=== PATIENT | female | born 1975 | race Caucasian/White ===

== ENCOUNTER 2024-12-11 10:30 | Inpatient (IN) | payer OTHER, SELFPAY ==
[2024-12-11] VITALS (13 sets, daily range): BP systolic 98–136; BP diastolic 59–111; BMI 29.1
[2024-12-11 05:21] LABS: % Eosinophils 1.3 % (0-6); % Immature Granulocytes 0.4 % (0-0.5); % Lymphocytes 17.5 % (20.5-51.1); % Neutrophils 70.8 % (42.2-75.2); Absolute Basophils 0.1 10^3/uL (0-0.2); Absolute Eosinophils 0.1 10^3/uL (0-0.7); Absolute Lymphocytes 1.6 10^3/uL (1.2-3.4); Absolute Monocytes 0.8 10^3/uL (0.1-0.6); Absolute Neutrophils 6.6 10^3/uL (1.4-6.5); Hematocrit 39.9 % (37.0-47.0); Hemoglobin 13.1 g/dL (12.0-16.0); Mean Corp Hgb Conc. 32.8 g/dL (33.0-37.0); Mean Corpuscular Hgb 31.9 pg (27.0-31.0); Mean Corpuscular Volume 97.1 fL (81.0-99.0); Mean Platelet Volume 10.6 fL (7.4-10.4); Nucleated Red Blood Cells % 0 %; Platelet Count 226 10^3/uL (130-400); Red Blood Cell Count 4.11 10^6/uL (4.20-5.40); Red Cell Dist. Width 13.1 % (11.5-14.5); White Blood Cell Count 9.3 10^3/uL (4.8-10.8)
[2024-12-11 05:30] LABS: COVID-19 Antigen Negative (Negative)
[2024-12-11 05:41] LABS: ALT (SGPT) 24 U/L (0-35); AST (SGOT) 35 U/L (14-36); Albumin 4.5 g/dl (3.5-5.0); Alkaline Phosphatase 66 U/L (38-126); Blood Urea Nitrogen 17 mg/dl (7-17); Calcium 9.8 mg/dl (8.4-10.2); Carbon Dioxide 18 mmol/L (22-30); Chloride 105 mmol/L (98-107); Estimated Creatinine Clearance 84 ml/min; Glucose 131 mg/dl (70-99); Sodium 138 mmol/L (135-145); Total Bilirubin 0.4 mg/dl (0.2-1.3); Total Protein 7.1 g/dl (6.3-8.2); eGFR > 60.00
[2024-12-11] MEDS: OFIRMEV 100 IV (05:47)
[2024-12-11] MEDS: NSS 2800 ML IV (05:47)
[2024-12-11 05:52] LABS: Lactic Acid 2.2 mmol/L (0.7-2.0)
--- NOTE | 2024-12-11 05:55 | ED.GENMED ---
History of Present Illness
<Luigi Puga MD, Resident - Last Filed: 12/11/24 09:39>
General
Chief Complaint: Change in Mental Status
Source: patient, family and physician
Time Seen by Provider: 12/11/24 05:53
Nursing documentation reviewed up to this point in time: agreed with
Travel History
Have you traveled to any high risk areas for coronavirus over the past 14 days?: No
Have you had any contact with someone who has COVID-19?: No
Do you have any symptoms of coronavirus? Fever > 100 degrees, chills, cough, shortness of breath, sore throat, loss of taste or smell, muscle aches, or headache?: Yes
History of Present Illness
History of Present Illness:
49-year-old female with PMH of psychosis, hypertension, bipolar disorder, periodic vomiting syndrome, narcotic abuse, marijuana use disorder, tobacco use disorder who presented to the ED by ambulance after family saw her hunching over her bed.
Family reports that they have been sick with flu and thinks that patient got the flu from them. They also reports that patient has been drinking heavily over the past 6 months but stopped drinking heavily recently after getting sick. Patient
denies chest pain, headaches, and dizziness.
Past History
<Luigi Puga MD, Resident - Last Filed: 12/11/24 09:39>
Past History
ED Past Medical History: HTN, Psychiatric (Overdose, bipolar disorder), Other (Chronic headaches, Palpitations) and Other (The patient has a history of periodic vomiting syndrome)
ED Past Surgical History: Other (Patient is given an endoscopy November 17 which was normal)
Social History
Tobacco: Smoker
Alcohol: None
Drug: Marijuana and Narcotics
Personal:
Living: with family
Employment: Employed
Family History
Family History: Other (Father with lung cancer)
Review of Systems
<Luigi Puga MD, Resident - Last Filed: 12/11/24 09:39>
Review of Systems
Other source history: family
Constitutional: Reports fever
Respiratory: Reports other (End expiratory wheeze)
Cardiac: Reports no symptoms
ABD/GI: Reports no symptoms
Skin: Reports other (Ecchymosis with second-degree burn on abdomen)
Neurological: Reports no symptoms
Phy Exam
<Luigi Puga MD, Resident - Last Filed: 12/11/24 09:39>
General Physical Exam
General Presentation: no apparent distress
General age: appears stated age
General Skin: warm, dry and feels hot
General Habitus: obese
General Mental: other (Somnolent but arousable)
General Hydration: dry mucous membranes and poor skin turgor
ENT Exam
ENT Exam: EOMI and neck supple
Cardiovascular Exam
Cardiovascular Exam: regular rate/rhythm, no edema, no gallop, no murmur and normal peripheral pulses
Pulmonary Exam
Pulmonary Exam: lungs clear, no respiratory distress, no crackles, no cough and generalized wheezing (B/l end-expiratory wheezing)
Breath Sounds: Wheeze: generalized
Gastrointestinal Exam
Gastrointestinal Exam: normal bowel sounds, non tender, soft, no organomegaly, no masses and other (Obese)
Palpation: generalized: No tenderness
Auscultation of Abdomen: normal
Mental
Mental Status: oriented to person and oriented to place
Musculoskeletal Exam
Musculoskeletal Exam: full ROM
Skin Exam
Skin Exam: warm/dry, redness (Mid abdominal), warmth and other (Second-degree burn mid abdomen)
Psychiatric Exam
Psychiatric Exam: normal mood/affect and other (Drowsy but arousable)
Course
<Luigi Puga MD, Resident - Last Filed: 12/11/24 09:39>
Orders/Labs/Results
Orders:
Orders
12/11/24 05:01
CT Head W/o Iv Contrast Urgent
Comment:
Reason For Exam: change in mentation
Cardiac Monitoring- Treatment ONCE
12/11/24 05:05
Alcohol Urgent
CMP [Comprehensive Metabolic Panel] Urgent
COVID-19 Antigen Urgent
Source: Nasal Swab
Complete Blood Count/With Diff Urgent
Lactic Acid Urgent
Influenza A+B Rapid Molecular Urgent
[place] Source: Nasal Swab
Specimen Description:
12/11/24 05:20
0.9% Sodium Chloride 1000 ml [Nss] 2,800 ml IV NOW STA
Acetaminophen 1000MG/100Ml [Ofirmev] 1,000 mg in 100 ml IV ONCE
Acetaminophen IV Indication:: ED Narcotic Naive Pt-ONCE
12/11/24 05:53
Add On- LAB Urgent
Tests Added?: alcohol
12/11/24 07:29
Lorazepam [Ativan] 1 mg IV NOW STA
12/11/24 08:00
Oseltamivir Phosphate [Tamiflu] 75 mg PO BID
Abnormal Lab Results
12/11/24
05:05
RBC 4.11 L 10^6/uL
(4.20-5.40)
MCH 31.9 H pg
(27.0-31.0)
MCHC 32.8 L g/dL
(33.0-37.0)
MPV 10.6 H fL
(7.4-10.4)
Absolute Neuts (auto) 6.6 H 10^3/uL
(1.4-6.5)
Absolute Monos (auto) 0.8 H 10^3/uL
(0.1-0.6)
Lymphocytes % 17.5 L %
(20.5-51.1)
Carbon Dioxide 18 L mmol/L
(22-30)
Glucose 131 H mg/dl
(70-99)
Lactic Acid 2.2 H mmol/L
(0.7-2.0)
12/11/24 05:05
12/11/24 05:05
Vital Signs
Initial and Last Documented VS:
Initial Vital Signs
BP
120/73
12/11/24 05:00
Last Documented Vital Signs
Temp Pulse Resp BP Pulse Ox
99.1 F 73 23 98/65 90
12/11/24 07:43 12/11/24 08:39 12/11/24 08:39 12/11/24 08:00 12/11/24 08:39
<Cleveland Gomes, DO - Last Filed: 12/11/24 09:25>
Orders/Labs/Results
Orders:
Orders
12/11/24 05:01
CT Head W/o Iv Contrast Urgent
Comment:
Reason For Exam: change in mentation
Cardiac Monitoring- Treatment ONCE
12/11/24 05:05
Alcohol Urgent
CMP [Comprehensive Metabolic Panel] Urgent
COVID-19 Antigen Urgent
Source: Nasal Swab
Complete Blood Count/With Diff Urgent
Lactic Acid Urgent
Influenza A+B Rapid Molecular Urgent
[place] Source: Nasal Swab
Specimen Description:
12/11/24 05:20
0.9% Sodium Chloride 1000 ml [Nss] 2,800 ml IV NOW STA
Acetaminophen 1000MG/100Ml [Ofirmev] 1,000 mg in 100 ml IV ONCE
Acetaminophen IV Indication:: ED Narcotic Naive Pt-ONCE
12/11/24 05:53
Add On- LAB Urgent
Tests Added?: alcohol
12/11/24 07:29
Lorazepam [Ativan] 1 mg IV NOW STA
12/11/24 08:00
Oseltamivir Phosphate [Tamiflu] 75 mg PO BID
Abnormal Lab Results
12/11/24
05:05
RBC 4.11 L 10^6/uL
(4.20-5.40)
MCH 31.9 H pg
(27.0-31.0)
MCHC 32.8 L g/dL
(33.0-37.0)
MPV 10.6 H fL
(7.4-10.4)
Absolute Neuts (auto) 6.6 H 10^3/uL
(1.4-6.5)
Absolute Monos (auto) 0.8 H 10^3/uL
(0.1-0.6)
Lymphocytes % 17.5 L %
(20.5-51.1)
Carbon Dioxide 18 L mmol/L
(22-30)
Glucose 131 H mg/dl
(70-99)
Lactic Acid 2.2 H mmol/L
(0.7-2.0)
12/11/24 05:05
12/11/24 05:05
Vital Signs
Initial and Last Documented VS:
Initial Vital Signs
BP
120/73
12/11/24 05:00
Last Documented Vital Signs
Temp Pulse Resp BP Pulse Ox
99.1 F 73 23 98/65 90
12/11/24 07:43 12/11/24 08:39 12/11/24 08:39 12/11/24 08:00 12/11/24 08:39
<Luigi Donato Puga MD, Resident - Last Filed: 12/11/24 09:39>
MDM/Problems Addressed
Differential Diagnosis Includes:
Alcohol withdrawal syndrome, influenza infection, anion gap metabolic acidosis (lactic acidosis)
MDM/Problems Addressed:
49-year-old female with PMH of hypertension, alcohol use disorder, bipolar disorder, periodic vomiting syndrome who presented to the emergency department with change in mental status. She has been drinking heavily for the past 6 months and stopped
drinking as much of that she got sick. She is influenza positive, COVID-negative. Labs significant for anion gap metabolic acidosis with lactic acidosis.
Admit to IMU.
Head CT unremarkable.
Influenza positive-Tamiflu 75 mg
Will start alcohol withdrawal protocol with Ativan 1 Mg.
IV fluids.
Discussed with hospitalist team.
Chronic conditions affecting care:
Alcohol use disorder, tobacco use disorder, marijuana use disorder, periodic vomiting syndrome
<Cleveland Gomes, DO - Last Filed: 12/11/24 09:25>
MDM/Problems Addressed
Chronic conditions affecting care: Psychiatric illness
Acute Exacerbation and/or Progression of Chronic Illness: Psychiatric illness
<Luigi Puga MD, Resident - Last Filed: 12/11/24 09:39>
*Radiology
Radiology exam reviewed: radiology read reviewed and all reviewed NAD by ED Provider
*Pulse Oximetry
Patient hypoxic: no
<Cleveland Gomes, DO - Last Filed: 12/11/24 09:25>
*Radiology
Radiology exam reviewed: radiology read reviewed (ct head nad)
*Critical Care Note
Total Time (30-74mins, 75-104mins- exclusive of procedures): Not Applicable
Data Reviewed
Review of Other/Old Records Reveals: Labs
Source: records (prior cr 0.8, 12/06/18)
<Luigi Puga MD, Resident - Last Filed: 12/11/24 09:39>
Patient Management
Social determinants of health affecting care: Substance abuse
Discussion with other providers: Hospitalist
<Cleveland Gomes, DO - Last Filed: 12/11/24 09:25>
Patient Management
Escalation/DeEscalation of care consider admission/obs:
admit indicated
ED Attending Note
<Luigi Puga MD, Resident - Last Filed: 12/11/24 09:39>
-
Portions of this chart may have been created with voice recognition software.� Occasional wrong word or��sound alike� substitutions may have occurred due to the inherent limitations of voice recognition software.
<Cleveland Gomes, DO - Last Filed: 12/11/24 09:25>
ED Attending Note
Patient seen and examined by attending physician: Yes
I performed a history and physical exam of patient and discussed management with resident, I reviewed resident's note and agree with documented findings and plan of care.: Yes
ED Attending Note:
I have reviewed and agree with history treatment plan by Luigi Puga MD. my exam revealed four 9-year-old female appears uncomfortable, sleepy but arousable. Temperature 102. She has a small area of blistering on her abdomen consistent with a
less than 1% second-degree burn, and an area of first-degree burn less than 1 %. Admit for alcohol withdrawal, influenza treatment, hypovolemia.
Discharge Plan
Departure
Patient Disposition: Admit
Date of Disposition: 12/11/24
Time of Disposition: 07:08
Admit to: IMU
Presentation/result/management discussed w/ accepting MD/DO: Hospitalist
Patient with high blood pressure during this ER visit?: No
Condition: Good
Discharge Problem:
Alcohol withdrawal, Flu, Alcohol use disorder, Cannabis use disorder, Acute dehydration, Bipolar disorder, Essential hypertension
Prescriptions:
No Action
lithium carbonate 450 mg Tablet Extended Release
900 mg PO DAILY
propranolol 10 mg Tablet
20 mg PO BIDPRN PRN (Reason: anxiety)
gabapentin 800 mg Tablet
800 mg PO QID
propranolol 80 mg Capsule,Extended Release 24 Hr
80 mg PO DAILY
prazosin 2 mg Capsule
2 mg PO HS
quetiapine [Seroquel] 50 mg Tablet
150 mg PO HS
quetiapine [Seroquel] 50 mg Tablet
50 mg PO HSPRN PRN (Reason: anxiety/sleep)
Referrals:
UNKNOWN - PT DOES,NOT KNOW [Family Provider] -
Interventions
Interventions:
*Risk Screen - Suicide Last Done: 12/11/24 05:03
*General Assessment Last Done: 12/11/24 05:03
*Neglect/Abuse Screening Last Done: 12/11/24 05:03
ED- Fall Risk Assessment Last Done: 12/11/24 06:00
ED- Pulmonary Assessment Last Done: 12/11/24 06:00
ED- Neurological Assessment Last Done: 12/11/24 06:00
ED- Cardiac Assessment Last Done: 12/11/24 06:00
Discharge Date and Time
Print Language: KOREAN
[2024-12-11 06:41] LABS: Alcohol None Detected
[2024-12-11] MEDS: ATIVAN 1 MG IV (07:38)
[2024-12-11] MEDS: TAMIFLU 75 MG PO ×2 (07:38→19:59)
--- NOTE | 2024-12-11 07:47 | PHANOTE ---
med rec note- patient verbal not communicating. daughter and family in room but unable to confirm medication. they did say patient has bunch of pill bottles at home. patient has no ecw records.
--- NOTE | 2024-12-11 09:19 | HPS.HSE ---
Family Physician
-
Family Physician: NOT KNOW UNKNOWN - PT DOES
Chief Complaint
-
Lethargy
History of Present Illness
49-year-old female with a past medical history of hypertension, bipolar disorder, and alcohol use disorder presented with lethargy, shaking, and possible vomiting. Patient lives with her daughter, who found her hunched over the side of the bed at 1
AM. Daughter reports patient being lethargic, slow to respond, and having tremors. Daughter is sick with the flu, patient was febrile in the ER and also tested positive for flu A. Associated symptoms include coughing, nausea, sneezing. No chest
pain, no shortness of breath. Patient drinks daily, her last drink was 2 days ago.
Medical History
Past Medical History
Past Medical History: Reports Other
Additional Past Medical History:
Hypertension
Bipolar disorder
Drug overdose
Chronic headaches
Palpitations
Alcohol use disorder
Periodic vomiting syndrome
Past Surgical History: Reports Other
Additional Past Surgical History:
Endoscopy
Social History
Tobacco: Smoker
Alcohol: Daily
Drug: Marijuana
Living: With Family
Family History
Family History: Not pertinent
Allergies / Home Medications
Allergies reflects when Allergies were last updated in [employer].
Home Medications with original date entered in [employer]
Allergy/Medication List:
Allergies
Allergy/AdvReac Type Severity Reaction Status Date / Time
NKA - No Known Allergies Allergy Unknown Uncoded 12/11/24 05:08
Home Medications Table - record
�Medication �Instructions �Recorded �Confirmed
gabapentin 800 mg tablet 800 mg PO QID 12/11/24
lithium carbonate 450 mg 900 mg PO DAILY 12/11/24
tablet,extended release
prazosin 2 mg capsule 2 mg PO HS 12/11/24
propranolol 10 mg tablet 20 mg PO BIDPRN PRN anxiety 12/11/24
propranolol 80 mg capsule,24 80 mg PO DAILY 12/11/24
hr,extended release
quetiapine 50 mg tablet (Seroquel) 50 mg PO HSPRN PRN anxiety/sleep 12/11/24
quetiapine 50 mg tablet (Seroquel) 150 mg PO HS 12/11/24
Review of Systems
-
A 12 point ROS was completed and negative except as noted: Yes
Physical Exam
Vital Signs
Vital Signs
Temp Pulse Resp BP Pulse Ox
99.1 F 73 23 98/65 90
12/11/24 07:43 12/11/24 08:39 12/11/24 08:39 12/11/24 08:00 12/11/24 08:39
Physical Exam
General: No Apparent Distress
HEENT: NormoCephalic, Anicteric and Moist mucous membranes
Respiratory: Clear
Cardiac: S1/S2
GI: Soft, Non Tender, Non Distended and Normal Bowel Sounds
Musculoskeletal: No Clubbing, No Cyanosis and No Edema
Skin: Warm and Dry
Neuro: Awake, Alert, Oriented and Tremors
Psych: Calm
Laboratory Results
-
12/11/24 05:05
12/11/24 05:05
Laboratory Results
Lactic Acid 2.2 mmol/L (0.7-2.0) H 12/11/24 05:05
Total Bilirubin 0.4 mg/dl (0.2-1.3) 12/11/24 05:05
AST 35 U/L (14-36) 12/11/24 05:05
ALT 24 U/L (0-35) 12/11/24 05:05
Alkaline Phosphatase 66 U/L (38-126) 12/11/24 05:05
Impression/Plan
-
HPI: 49-year-old female with a past medical history of hypertension, bipolar disorder, and alcohol use disorder presented with lethargy, shaking, and possible vomiting. Patient lives with her daughter, who found her hunched over the side of the bed
at 1 AM. Daughter reports patient being lethargic, slow to respond, and having tremors. Daughter is sick with the flu, patient was febrile in the ER and also tested positive for flu A. Associated symptoms include coughing, nausea, sneezing. No
chest pain, no shortness of breath. Patient drinks daily, her last drink was 2 days ago.
#Acute influenza A infection
Continue Tamiflu x 5 days, supportive care
#Acute alcohol withdrawal
Thiamine, folic acid
MSAS protocol
#Bipolar disorder
Continue lithium, Seroquel
#Chronic headaches
Continue propranolol
DVT prophylaxis�subcu Lovenox
Full code
Updated daughter on phone 12/11
Total time spent to see the patient on the floor, examine the patient, review data and lab results, discuss treatment plan with patient, nursing staff around 76 minutes.
[2024-12-11] MEDS: SODIUM BICARBONATE 1300 MG PO ×3 (15:29→23:11)
[2024-12-11] MEDS: VITAMIN B1 100 MG PO ×2 (15:29→19:59)
[2024-12-11] MEDS: MUCINEX 1200 MG PO ×2 (15:29→19:59)
[2024-12-11] MEDS: SODIUM BICARBONATE 1075 MEQ IV (16:15)
[2024-12-11 17:32] LABS: Magnesium 2.2 mg/dl (1.6-2.3); Phosphorus 5.4 mg/dl (2.5-4.5)
[2024-12-11] MEDS: LOVENOX 40 MG SC (18:13)
--- NOTE | 2024-12-11 19:15 | PTCARENOTE ---
Pt aaox3,cooperative. nsr on monitor. pox 95% on RA. Denies sob, c/o mild cough. medications given as ordered. Pt oob to br with steady gait. Urine sample sent. oriented to room.
[2024-12-11 20:11] LABS: Urine Albumin Trace (Neg - Trace); Urine Bilirubin Negative (Negative); Urine Character Clear (Clear); Urine Color Yellow; Urine Glucose Negative (Negative); Urine Ketone Negative (Negative); Urine Leukocyte Negative (Negative); Urine Nitrite Negative (Negative); Urine Occult Blood Negative (Negative); Urine Specific Gravity 1.025 (<1.030); Urine Urobilinogen Negative (Neg - 1+)
[2024-12-11 20:29] LABS: Amphetamines Negative (Negative); Barbiturates Negative (Negative); Benzodiazepines Positive (Negative); Buprenorphine Negative (Negative); Cocaine Negative (Negative); Marijuana Positive (Negative); Methadone Negative (Negative); Methamphetamines Negative (Negative); Opiates Negative (Negative); Phencyclidine Negative (Negative); Tricyclic Antidepressants Positive (Negative)
--- NOTE | 2024-12-11 21:30 | PTCARENOTE ---
Pt transferred from ED to 3W via stretcher. Pt independent from stretcher to bed, vitals obtained and stable. Pt flu+, ETOH w/d on MSAS protocol. AAOX3, TELE #25, oriented to room, call ellington within reach. Will continue to monitor.
[2024-12-11 21:42] LABS: Fentanyl, Urine Negative (Negative)
[2024-12-11] MEDS: SEROQUEL 200 MG PO (23:11)
[2024-12-11] MEDS: NEURONTIN 800 MG PO (23:12)
[2024-12-11] MEDS: MINIPRESS 2 MG PO (23:34)
[2024-12-12] VITALS: BP 142/93; BMI 32.3
[2024-12-12 03:16] VITALS: BP 110/67
[2024-12-12 07:05] VITALS: BP 102/68
[2024-12-12 08:05] LABS: Blood Urea Nitrogen 9 mg/dl (7-17); Calcium 8.7 mg/dl (8.4-10.2); Carbon Dioxide 27 mmol/L (22-30); Chloride 109 mmol/L (98-107); Estimated Creatinine Clearance > 125 ml/min; Glucose 88 mg/dl (70-99); Magnesium 2.4 mg/dl (1.6-2.3); Potassium 3.8 mmol/L (3.5-5.1); Sodium 142 mmol/L (135-145); eGFR > 60.00
[2024-12-12] MEDS: NEURONTIN 800 MG PO ×2 (08:18→13:36)
[2024-12-12] MEDS: ESKALITH ER (EXTENDED RELEASE) 900 MG PO (08:18)
[2024-12-12] MEDS: VITAMIN B1 100 MG PO (08:18)
[2024-12-12] MEDS: MUCINEX 1200 MG PO (08:18)
[2024-12-12] MEDS: FOLVITE 1 MG PO (08:18)
[2024-12-12] MEDS: TAMIFLU 75 MG PO (08:19)
[2024-12-12] MEDS: INDERAL LA 80 MG PO (08:19)
[2024-12-12] MEDS: SODIUM BICARBONATE 1300 MG PO (08:19)
--- NOTE | 2024-12-12 09:08 | W.PN.HOSP.TC ---
Today's Communication/Plan
-
Discharge today
Assessment / Plan
Assessment / Plan
HPI: 49-year-old female with a past medical history of hypertension, bipolar disorder, and alcohol use disorder presented with lethargy, shaking, and possible vomiting. Patient lives with her daughter, who found her hunched over the side of the bed
at 1 AM. Daughter reports patient being lethargic, slow to respond, and having tremors. Daughter is sick with the flu, patient was febrile in the ER and also tested positive for flu A. Associated symptoms include coughing, nausea, sneezing. No
chest pain, no shortness of breath. Patient drinks daily, her last drink was 2 days ago.
#Acute influenza A infection
Continue Tamiflu x 5 days, supportive care
She denies shortness of breath, she is not hypoxic
Medically stable for discharge
Follow-up with her PCP in 1 week
#Acute alcohol withdrawal
Thiamine, folic acid
MSAS protocol
Alcohol cessation counseling has been provided
Patient states she will try outpatient therapy
Discharge on thiamine
#Bipolar disorder
Continue lithium, Seroquel
#Chronic headaches
Continue propranolol
#Obesity due to excess calories
Affects all aspects of care
DVT prophylaxis�subcu Lovenox
Full code
Updated daughter on phone 12/12
Physical Exam
General: Obese, no acute distress
HEENT: Normocephalic, Atraumatic, EOMI, MMM
Respiratory: Clear to Auscultation bilaterally
Cardiac: Normal S1/S2, Regular Rate and Rhythm
GI: Soft, Nontender, Nondistended, Normal Bowel Sounds
Extremities: No Clubbing, Cyanosis, or Edema
Neuro: Nonfocal/Grossly Intact
Psych: Calm, Cooperative
Derm: No Visible lesions
Anticipated Discharge: Today
Subjective/Interval History
-
Date of Service: December 12, 2024
Patient continues to cough, but feels better overall. Denies shortness of breath. No chest pain, no nausea, no vomiting. Her shakes/tremors have resolved.
Objective Data
-
Labs:
Laboratory Results
12/12/24
06:38
Sodium 142
Potassium 3.8
Chloride 109 H
Carbon Dioxide 27
BUN 9
Creatinine 0.6
Glucose 88
Calcium 8.7
Vital Signs:
Vital Signs
Temp Pulse Resp BP Pulse Ox
98.4 F 79 18 102/68 99
12/12/24 07:05 12/12/24 07:05 12/12/24 07:05 12/12/24 07:05 12/12/24 07:05
[2024-12-12 11:05] VITALS: BP 107/77
[2024-12-12] MEDS: HYDROPHOR 1 APPLIC TOPICAL (13:42)
[2024-12-12 15:05] VITALS: BP 108/69
[2024-12-12] MEDS: AFLURIA (36 mos+) 2024-2025 FORMULA 0.5 ML IM (15:45)
== END 2024-12-12 16:25 | disposition home or self-care (01) | DRG 897 ==
LOC: 3 WEST ACU 10:30
PROVIDERS: Emergency Medicine; ADMITTING PHYSICIAN Family Medicine; EMERGENCY PHYSICIAN Emergency Medicine
PROC: 3E02340 Introduction of Influenza Vaccine into Muscle, Percutaneous Approach (ICD-10-PCS; 2024-12-12)
DX: F10.139 Alcohol abuse with withdrawal, unspecified (principal); J10.1 Influenza due to other identified influenza virus with other respiratory manifestations; I10 Essential (primary) hypertension; F31.9 Bipolar disorder, unspecified; E86.0 Dehydration; F17.200 Nicotine dependence, unspecified, uncomplicated; E66.09 Other obesity due to excess calories; Z68.32 Body mass index [BMI] 32.0-32.9, adult; Z23 Encounter for immunization; Z20.822 Contact with and (suspected) exposure to COVID-19
CPT/HCPCS: 70450; 80048; 80053; 80306; 80307; 81003; 82077; 83605; 83735; 84100; 85025; 87502; 87811; 90686; 96361; 96374; 96375; 99285; G0008; J7030